=== PATIENT | male | born 1960 | race African-American/Black ===

== ENCOUNTER 2020-06-22 09:25 | Emergency (ER) | payer OTHER ==
[2020-06-22 09:47] VITALS: TEMP 99.4; BMI 26.9
[2020-06-22] MEDS: ALBUTEROL SO4 2.5/IPRATROPIUM 0.5 INH SOL 3 ML VIAL.NEB. NEB SCH ×4 (10:19→11:04)
[2020-06-22] MEDS ORDERED: predniSONE 20 MG TABLET (UD) PO ONE (13:24)
[2020-06-22] MEDS ORDERED: predniSONE 20 MG TABLET (UD) ONE (13:29)
[2020-06-22] MEDS ORDERED: predniSONE 10 MG TABLET (UD) ONE (13:30)
[2020-06-22 13:38] VITALS: BP 108/75; PULSE 97
[2020-06-22 13:59] LABS: COCAINE, UR NEGATIVE ng/ml (CUTOFF=300); OPIATES, URI NEGATIVE ng/ml (CUTOFF=300)
[2020-06-22 14:00] LABS: PHENCYCLIDINE,URINE NEGATIVE ng/ml (CUTOFF=25)
[2020-06-22 14:02] LABS: METHADONE, UR NEGATIVE ng/ml (CUTOFF=300); URINE AMPHETAMINES NEGATIVE ng/ml (CUTOFF=500); URINE BARBITURATES NEGATIVE ng/ml (CUTOFF=200); URINE BENZODIAZEPINES NEGATIVE ng/ml (CUTOFF=200)
== END 2020-06-22 13:38 | disposition home or self-care (01) ==
LOC: JER 09:25
PROC: 3E0F7GC Introduction of Other Therapeutic Substance into Respiratory Tract, Via Natural or Artificial Opening (ICD-10-PCS; principal; 2020-06-22)
DX: R06.02 Shortness of breath (principal); R05 Cough; R68.83 Chills (without fever)
CPT/HCPCS: 71045-TC-FY; 80307; 87804; 99285-25; C9803; U0003

== ENCOUNTER 2020-07-13 12:39 | Emergency (ER) | payer OTHER ==
[2020-07-13 13:00] VITALS: BP 113/72; PULSE 92; TEMP 98.5; BMI 27.7
== END 2020-07-13 14:50 | disposition home or self-care (01) ==
LOC: JER 12:39
DX: R05 Cough (principal)
CPT/HCPCS: 71046-TC-FY; 87804; 99284-25; C9803; U0003

== ENCOUNTER 2020-07-26 11:23 | Emergency (ER) | payer OTHER | END 2020-07-26 13:11 | disposition home or self-care (01) | LOC: JVIRT 11:23 | DX: Z11.52 Encounter for screening for COVID-19 (principal) | CPT/HCPCS: C9803; G2251-GT; U0003 ==

== ENCOUNTER 2020-08-01 10:10 | Emergency (ER) | payer OTHER | END 2020-08-01 11:42 | disposition home or self-care (01) | LOC: JVIRT 10:10 | DX: U07.1 COVID-19 (principal) | CPT/HCPCS: C9803; G2251-GT; U0003 ==

== ENCOUNTER 2020-08-25 09:59 | Emergency (ER) | payer OTHER | END 2020-08-25 12:31 | disposition home or self-care (01) | LOC: JVIRT 09:59 | DX: Z11.52 Encounter for screening for COVID-19 (principal) | CPT/HCPCS: C9803; G2251-GT; Q3014-GT; U0003 ==

== ENCOUNTER 2020-09-08 12:29 | Emergency (ER) | payer OTHER ==
[2020-09-09 10:07] LABS: SARS-CoV-2 NAA Not Detected (Not Detected)
== END 2020-09-08 13:32 | disposition home or self-care (01) ==
LOC: JVIRT 12:29
DX: U07.1 COVID-19 (principal)
CPT/HCPCS: C9803; G2251-GT; Q3014-GT; U0003; U0005

== ENCOUNTER 2023-04-11 09:35 | Emergency (ER) | payer OTHER ==
[2023-04-11 09:41] VITALS: BP 120/78; PULSE 83; RESP 18; TEMP 98; BMI 30.3
[2023-04-11] MEDS ORDERED: MAG HYDROX/AL HYDROX/SIMETH 30 ML UNIT-DOSE CUP PO ONE (10:21)
[2023-04-11] MEDS ORDERED: MAG HYDROX/AL HYDROX/SIMETH 30 ML UNIT-DOSE CUP ONE (10:24)
[2023-04-11 11:11] LABS: THROAT:GRP A STREP NOT DETECTED (NOTDETECTED)
== END 2023-04-11 11:45 | disposition home or self-care (01) ==
LOC: JER 09:35
DX: R09.81 Nasal congestion (principal); J02.9 Acute pharyngitis, unspecified; R05.9 Cough, unspecified; R14.3 Flatulence; J31.0 Chronic rhinitis; J06.9 Acute upper respiratory infection, unspecified; Z20.822 Contact with and (suspected) exposure to COVID-19
CPT/HCPCS: 0241U-QW; 87651; 99283-25

== ENCOUNTER 2023-10-14 19:43 | Emergency (ER) | payer OTHER ==
[2023-10-14 19:51] VITALS: BP 111/80; PULSE 87; RESP 20; TEMP 98.2; BMI 31.6
[2023-10-14] MEDS ORDERED: DIPHTH,PERTUSS(ACELL),TET 0.5 ML DISP.SYRIN IM ONE ×2 (20:28→20:33)
[2023-10-14] MEDS: DIPHTH,PERTUSS(ACELL),TET 0.5 ML DISP.SYRIN IM ONE (20:35)
== END 2023-10-14 20:59 | disposition home or self-care (01) ==
LOC: JER 19:43
PROC: 0HQCXZZ Repair Left Upper Arm Skin, External Approach (ICD-10-PCS; principal; 2023-10-14)
PROC: 3E0234Z Introduction of Serum, Toxoid and Vaccine into Muscle, Percutaneous Approach (ICD-10-PCS; 2023-10-14)
DX: S51.012A Laceration without foreign body of left elbow, initial encounter (principal); W26.0XXA Contact with knife, initial encounter; Z23 Encounter for immunization
CPT/HCPCS: 12002-25; 90471; 90715; 99282-25

== ENCOUNTER 2023-10-26 13:33 | Emergency (ER) | payer OTHER ==
[2023-10-26 13:41] VITALS: BP 97/68; PULSE 85; RESP 18; TEMP 97.6; BMI 31.1
== END 2023-10-26 14:11 | disposition home or self-care (01) ==
LOC: JERFT 13:33
DX: Z48.02 Encounter for removal of sutures (principal)
CPT/HCPCS: 99281-25

== ENCOUNTER 2024-04-01 12:53 | Emergency (ER) | payer OTHER ==
[2024-04-01 13:04] VITALS: TEMP 98.6; BMI 29.4
[2024-04-01] MEDS ORDERED: KETOROLAC TROMETHAMINE 30 MG/1 ML VIAL ONE (14:07)
[2024-04-01] MEDS ORDERED: LIDOCAINE 4% PATCH TP ONE (14:07)
[2024-04-01] MEDS: LIDOCAINE 4% PATCH TP ONE (14:13)
[2024-04-01] MEDS: KETOROLAC TROMETHAMINE 30 MG/1 ML VIAL IM ONE (14:14)
[2024-04-01 14:20] VITALS: BP 113/84; PULSE 89; RESP 20
== END 2024-04-01 14:31 | disposition home or self-care (01) ==
LOC: JERFT 12:53
PROC: 3E0133Z Introduction of Anti-inflammatory into Subcutaneous Tissue, Percutaneous Approach (ICD-10-PCS; principal; 2024-04-01)
DX: S39.012A Strain of muscle, fascia and tendon of lower back, initial encounter (principal); X50.1XXA Overexertion from prolonged static or awkward postures, initial encounter; Y99.0 Civilian activity done for income or pay
CPT/HCPCS: 99284-25

== ENCOUNTER 2024-09-24 08:35 | Emergency (ER) | payer OTHER ==
[2024-09-24] MEDS ORDERED: ALBUTEROL SO4 2.5/IPRATROPIUM 0.5 INH SOL 3 ML VIAL.NEB. NEB ONE ×2 (08:58→11:23)
[2024-09-24 09:11] VITALS: BMI 29.0
[2024-09-24] MEDS: ALBUTEROL SO4 2.5/IPRATROPIUM 0.5 INH SOL 3 ML VIAL.NEB. NEB ONE ×2 (09:11→11:25)
[2024-09-24] MEDS ORDERED: DEXAMETHASONE 4 MG TABLET (FP) ONE (09:36)
[2024-09-24 09:39] LABS: ABSOLUTE IMMATURE GRANULOCYTES 0.04 x10^3/uL (0.0-0.031); BASOPHILS # 0.07 x10^3/uL (0.01-0.08); EOSINOPHIL % 10.5 % (0.8-7.0); HEMATOCRIT 46.3 % (40.1-51.0); MCHC 32.4 g/dl (32.3-36.5); MEAN CELL VOLUME 91.3 fl (79.0-92.2); MEAN PLT VOLUME 10.9 fl (9.4-12.4); MONOCYTE # 0.51 x10^3/uL (0.30-0.82); PLATELET COUNT 235 x10^3/uL (163-337); RDW 13.3 % (12.2-16.4)
[2024-09-24] MEDS: DEXAMETHASONE 4 MG TABLET (FP) PO ONE (09:39)
[2024-09-24 10:00] LABS: POTASSIUM 4.2 mmol/L (3.5-5.1)
[2024-09-24 10:03] LABS: ALBUMIN 3.7 g/dl (3.4-5.0); CALCIUM 9.7 mg/dL (8.5-10.1)
[2024-09-24 10:04] LABS: BLOOD UREA NITROGEN 14.6 mg/dL (7-18)
[2024-09-24 10:08] LABS: CREATININE 1.5 mg/dL (0.55-1.3)
[2024-09-24 10:09] LABS: TOT PROT 7.5 g/dl (6.4-8.2)
[2024-09-24 10:10] LABS: BILIRUBIN,TOTAL 1.3 mg/dL (0.2-1)
[2024-09-24 12:48] VITALS: TEMP 97.7
[2024-09-24 14:57] VITALS: BP 108/74; PULSE 87; RESP 20
== END 2024-09-24 14:27 | disposition home or self-care (01) ==
LOC: JER 08:35
PROC: 3E0F7GC Introduction of Other Therapeutic Substance into Respiratory Tract, Via Natural or Artificial Opening (ICD-10-PCS; principal; 2024-09-24)
PROC: 3E0F7GC Introduction of Other Therapeutic Substance into Respiratory Tract, Via Natural or Artificial Opening (ICD-10-PCS; 2024-09-24)
DX: J45.901 Unspecified asthma with (acute) exacerbation (principal); R06.03 Acute respiratory distress; R06.02 Shortness of breath; R61 Generalized hyperhidrosis
CPT/HCPCS: 0241U-QW; 36415; 71046-TC-FY; 80053; 84484; 85025; 93005; 93010; 99285-25

== ENCOUNTER 2024-10-22 05:29 | Emergency (ER) | payer OTHER ==
[2024-10-22 05:55] VITALS: TEMP 97.1; BMI 28.0
[2024-10-22] MEDS ORDERED: BUDESONIDE/FORMETEROL FUMARATE 160/4.5 mcg INHALER IH ONE (06:18)
[2024-10-22 06:35] VITALS: BP 114/78; PULSE 87; RESP 20
== END 2024-10-22 07:04 | disposition home or self-care (01) ==
LOC: JER 05:29
DX: J45.901 Unspecified asthma with (acute) exacerbation (principal); R06.02 Shortness of breath; R06.03 Acute respiratory distress
CPT/HCPCS: 99283-25